=== PATIENT | female | born 1965 | race Caucasian/White ===

== ENCOUNTER 2021-02-05 15:24 | Emergency (ER) | payer SELFPAY ==
[~2021-02-05] VITALS: Ht 172.7 cm; Wt 110.0 kg
--- NOTE | 2021-02-05 15:46 | PHYS DOC ---
Adult General Chief Complaint Chief Complaint: UPPER EXTREMITY INJURY HPI HPI Patient is a 55-year-old female presents emergency department with a chief complaint of right elbow tingly feeling and right wrist pain after tripping and falling in her utility room at approximately noon today. Patient states that she stumbled forward and caught herself on the dryer, denies hitting her head, denies loss of consciousness. Denies injury to other parts of her body. Reports a 7 out of 10 pain. Patient states she takes 10 mg cyclobenzaprine and 100 mg of gabapentin along with trazodone daily for fibromyalgia issues, patient states she sees Dr. King her primary care, denies allergies to medications, patient denies any other physical complaints or physical concerns. Patient states she did not take any medications for her pain prior to arrival to the ER today. (DADA MONTIEL APRN) Review of Systems Review of Systems 14 body systems of review of systems have been reviewed. See HPI for pertinent positives and negative responses, otherwise all other systems are negative, nonpertinent or noncontributory. Constitutional: Negative except as outlined in HPI above. Skin: Negative except as outlined in HPI above. Eyes: Negative except as outlined in HPI above. HENT: Negative except as outlined in HPI above. Respiratory: Negative except as outlined in HPI above. Cardiovascular: Negative except as outlined in HPI above. GI: Negative except as outlined in HPI above. : Negative except as outlined in HPI above. Musculoskeletal: Negative except as outlined in HPI above. Integument: Negative except as outlined in HPI above. Neurologic: Negative except as outlined in HPI above. Endocrine: Negative except as outlined in HPI above. Lymphatic: Negative except as outlined in HPI above. Psychiatric: Negative except as outlined in HPI above. (DADA MONTIEL APRN) Physical Exam Physical Exam Constitutional: Well developed, well nourished, no acute distress, non-toxic appearance. 55-year-old female in no apparent distress. Patient is self splinting right upper extremity. HENT: Normocephalic, atraumatic. Eyes: Conjunctiva normal, no discharge. Neck: Normal range of motion, no stridor. Cardiovascular: No cyanosis appreciated, distal cap refill less than 2 seconds. Lungs & Thorax: Patient is in no respiratory distress, no audible adventitious lung sounds appreciated. Abdomen: Nontender, no abnormalities noted. Skin: Warm, dry, no erythema, no rash. Back: No tenderness, no deformities. Extremities: No tenderness, no cyanosis, no clubbing, ROM intact, no edema. E xcept for right upper extremity, patient complains of mild pain to elbow area, complains of paresthesia during exam to elbow area that travels distally to ring and pinky finger, denies total loss of sensation, negative Tinel's test, pain to palpation right wrist, no crepitus appreciated, no deformity appreciated, no skin discoloration or ecchymosis appreciated, no swelling appreciated. Distal cap refill is less than 2 seconds, patient has full AROM/PROM of fingers, limited passive range of motion to wrist and elbow related to pain. Neurologic: Alert and oriented X 3, normal motor function, normal sensory function, no focal deficits noted. Psychologic: Affect normal, judgement normal, mood normal. (DADA MONTIEL APRN) EKG EKG [] (DADA MONTIEL APRN) Radiology/Procedures Radiology/Procedures PATIENT: KAMINI LAMBERT ACCOUNT: [id number] : 1965 LOCATION: ER AGE: 55 SEX: F EXAM STATUS: REG ER ORD. PHYSICIAN: DADA MONTIEL APRN REASON: fall, pain PROCEDURE: ELBOW RIGHT 3V EXAMINATION: 4 views of the right elbow and 3 views of the right wrist. COMPARISON: None INDICATION:55 years, Female, fall, pain. FINDINGS: Right elbow: No acute fracture, dislocation or subluxation. No bone erosion or periosteal reaction. No soft tissue swelling or joint effusion. Were Right wrist: Acute comminuted displaced distal radial fracture extends to the radiocarpal joint. The distal fragments are displaced dorsally approximately 4 mm. Diffuse soft tissue swelling about the wrist. No dislocation or subluxation. IMPRESSION: 1. Acute comminuted displaced distal radial fracture with intra-articular extension. 2. No acute or osseous process in the right elbow. Electronically signed by: Hermes Otrega MD (02/05/2021 5:58 PM) [facility] DICTATED AND SIGNED BY: HERMES ORTEGA MD DATE: 02/05/21 0053 CC: DADA MONTIEL APRN; CHERYL,SHANIA ~MTH0 0 (DADA MONTIEL APRN) Heart Score C/O Chest Pain: No Risk Factors: Risk Factors: DM, Current or recent (<one month) smoker, HTN, HLP, family history of CAD, obesity. Risk Scores: Risk Factors: DM, Current or recent (<one month) smoker, HTN, HLP, family history of CAD, obesity. (DADA MONTIEL APRN) Course & Med Decision Making Course & Med Decision Making Pertinent Labs and Imaging studies reviewed. (See chart for details) 55-year-old female, vital signs reviewed, presents emergency department with complaints of right elbow and wrist pain after a stumble and fall at noon today. Physical examination concerning for possible bony injury versus contusion to right elbow and wrist, will give p.o. Motrin for pain, order x-ray of elbow and wrist of the right upper extremity. Ice pack applications. X-ray concerning for distal radial fracture comminuted with articular extension, negative for elbow fracture, discussed with patient will place an sugar tong splint, ice packs 30 minutes on 30 minutes off, sling for comfort, elevation while not in sling. Pain medication at home. Strict follow-up with orthopedic surgeon this Sunday. Patient gave verbal understanding discharge home instructions, OCL splint use, sling use, ice packs 30 minutes on 30 minutes off, pain medication use, strict follow-up with orthopedic surgery this week, patient had no further questions or concerns, remains hemodynamically stable at discharge, states her pain relief is down to a 2 out of 10. Patient was discharged home without incident. (DADA MONTIEL APRN) Dragon Disclaimer Dragon Disclaimer This electronic medical record was generated, in whole or in part, using a voice recognition dictation system. (DADA MONTIEL APRN) Attending Co-Sign The patient was seen and interviewed as well as examined at the bedside. The chart was reviewed. The case was discussed. Agree with the plan of care. (DAYLIN BORJA DO) Departure Departure: Impression: Primary Impression: Fracture of right distal radius Disposition: HOME / SELF CARE / HOMELESS Condition: GOOD Referrals: PCP,NO (PCP) Patient Instructions: Arm Sling Use, Onov-[id number]-[id number], Cast or Splint Care, Radius Fracture with Rehab-Sports[facility] Additional Instructions: You were seen today in the emergency department for a fall which resulted in injury of your right wrist and elbow. X-ray of your elbow did not show any broken bones, the x-ray of your wrist did show a fracture of your radial bone, the radiologist reported an acute comminuted displaced distal radial fracture extends to the radiocarpal joint. You have been given a disc copy of your x- rays, please bring this disc copy to your orthopedic appointment. It is important that you see an orthopedist this coming Sunday. You may choose to use the [facility] orthopedic group located at [address] [place] [address] [place], [facility], [facility], their telephone number is area code [phone]. Please call this Sunday for an appointment. Please return to the emergency department for uncontrolled pain, discoloration of your fingertips, or numbness or tingling that is uncontrolled with medications, elevation, ice pack applications. It is important that you continue to apply ice 30 minutes on and 30 minutes off while awake for the next 48 to 72 hours to help minimize swelling as this will help minimize pain and discomfort. Please elevate your extremity as we discussed. You may use the sling for comfort while ambulating around your house. Otherwise please keep elevated. I am prescribing you pain medications to use for severe pain, I am also prescribing you nausea medication as you have indicated strong pain medications tend to make you nauseated. You may take the nausea medication first and then wait a period of time before taking your pain medication. Otherwise you may use [id number] Tylenol and or Motrin for mild pain and discomfort. Thank you for visiting our Emergency Department. It was a pleasure taking care of you today in the emergency department and we appreciate you trusting us with your care. If any additional problems come up don't hesitate to return to visit us. Please follow up with your primary care provider so they can plan additional care if needed and know about the problem that you had. If symptoms worsen come back to the Emergency Department. Any concerning symptoms that start such as chest pain, shortness of air, weakness or numbness on one side of the body, running high fevers or any other concerning symptoms return to the ER. EMERGENCY DEPARTMENT GENERAL DISCHARGE INSTRUCTIONS Thank you for coming to [facility] (ED) today and trusting us with you care. We trust that you had a positivie experience in our Emergency Department. If you wish to speak to the department management, you may call the director at [phone]. YOUR FOLLOW UP INSTRUCTIONS ARE FOLLOWS: 1. Do you have a private Doctor? If you do not have a private doctor, please ask for a resource list of physicians or clinics that may be able to assist you with follow up care. 2. The Emergency Physician has interpreted your x-rays. The X-Ray specialist will also review them. If there is a change in the findings, you will be notified in 48 hours when at all possible. 3. A lab test or culture has been done, your results will be reviewed and you will be notified if you need a change in treatment. ADDITIONAL INSTRUCTIONS AND INFORMATION: 1. Your care today has been supervised by a physician who is specially trained in emergency care. Many problems require more than one evaluation for a complete diagnosis and treatment. We recommend that you schedule your follow up appointment as recommended to ensure complete treatment of you illness or injury. If you are unable to obtain follow up care and continue to have a problem, or if your condition worsens, we recommend that you return to the ED. 2. We are not able to safely determine your condition over the phone nor are we able to give sound medical advice over the phone. For these safety reasons, if you call for medical advice we will ask you to come to the ED for further evaluation. 3. If you have any questions regarding these discharge instructions please call the ED at [phone]. SAFETY INFORMATION: In the interest of safety, wellness, and injury prevention; we encourage you to wear your sealbelt, if you smoke; quite smoking, and we encourage family to use a protective helmet for bicycling and other sporting events that present an increased risk for head injury. IF YOUR SYMPTOMS WORSEN OR NEW SYMPTOMS DEVELOP, OR YOU HAVE CONCERNS ABOUT YOUR CONDITION; OR IF YOUR CONDITION WORSENS WHILE YOU ARE WAITING FOR YOUR FOLLOW UP APPOINTME NT; EITHER CONTACT YOUR PRIMARY CARE DOCTOR, THE PHYSICIAN WHOSE NAME AND NUMBER YOU WERE GIVEN, OR RETURN TO THE ED IMMEDIATELY. Scripts Hydrocodone Bit/Acetaminophen (HYDROCODONE-APAP 5-325 ) 1 Each Tablet 1 TAB PO PRN Q6HRS PRN for SEVERE PAIN 7-10, #20 TAB 0 Refills Prov: DADA MONTIEL APRN 02/05/21 Ondansetron (ONDANSETRON ODT) 4 Mg Tab.rapdis 1 TAB PO PRN Q6-8HRS for nausea, #16 TAB 0 Refills Prov: DARSHANMaryDADA APRN 02/05/21 Problem Qualifiers Primary Impression: Fracture of right distal radius Encounter type: initial encounter Fracture type: closed Fracture morphology: unspecified fracture morphology Qualified Codes: S52.501A - Unspecified fracture of the lower end of right radius, initial encounter for closed fracture DADA MONTIEL APRN Feb 05, 2021 15:46 DAYLIN BORJA DO Feb 06, 2021 06:15
[2021-02-05] MEDS ORDERED: IBUPROFEN 600 MG TABLET. PO ONE (16:00)
[2021-02-05] MEDS ORDERED: HYDROcodone/APAP 5/325MG 1 TAB TABLET PO ONE (16:45)
[2021-02-05] MEDS ORDERED: ONDANSETRON ODT 4 MG TAB.RAPDIS PO ONE (16:45)
--- NOTE | 2021-02-05 18:00 | RAD ---
EXAMINATION: 4 views of the right elbow and 3 views of the right wrist. COMPARISON: None INDICATION:55 years, Female, fall, pain. FINDINGS: Right elbow: No acute fracture, dislocation or subluxation. No bone erosion or periosteal reaction. N o soft tissue swelling or joint effusion. Were Right wrist: Acute comminuted displaced distal radial fracture extends to the radiocarpal joint. The distal fragments are displaced dorsally approximately 4 mm. Diffuse soft tissue swelling about t he wrist. No dislocation or subluxation. IMPRESSION: 1. Acute comminuted displaced distal radial fracture with intra-articular extension. 2. No acute or osseous process in the right elbow. Electronically signed by: Austyn Ortega MD (02/05/2021 5:58 PM) [facility]
[2021-02-05] MEDS ORDERED: HYDR-2155 PO (18:29)
[2021-02-05] MEDS ORDERED: ONDA4TAB12 PO (18:29)
[2021-02-05 18:40] VITALS: BP 138/77
== END 2021-02-05 18:40 | disposition home or self-care (01) ==
LOC: ER 15:24
DX: S52.501A Unspecified fracture of the lower end of right radius, initial encounter for closed fracture (principal); W01.0XXA Fall on same level from slipping, tripping and stumbling without subsequent striking against object, initial encounter; Y93.89 Activity, other specified; Y92.89 Other specified places as the place of occurrence of the external cause; Y99.8 Other external cause status
CPT/HCPCS: 29125; 73080; 73110; 99284; Q0162